=== PATIENT | male | born 1945 | race Caucasian/White ===

== ENCOUNTER 2017-05-08 22:17 | Emergency (ER) | payer MEDICARE ==
[~2017-05-08] VITALS: Ht 180.3 cm; Wt 83.9 kg
--- NOTE | 2017-05-10 21:43 | EKG ---
[facility] [address] [facility] [place] [address] Signed Sinus bradycardia Right bundle branch block Abnormal ECG No previous ECGs available Confirmed by ANTONI GREGORIO MD ([id number] on 05/10/2017 9:43:23 PM Electronically Signed By: ANTONI GREGORIO MD 05/10/17 2143 PATIENT NAME: TAMEKANILSON Dominique Electrocardiogram DATE OF : 45 PHYSICIAN: ANTONI GREGORIO MD REPORT #: [id number] REPORT IS CONFIDENTIAL AND NOT TO BE RELEASED WITHOUT AUTHORIZATION
== END 2017-05-08 23:58 | disposition home or self-care (01) ==
LOC: ED 22:17
DX: J44.1 Chronic obstructive pulmonary disease with (acute) exacerbation (principal); F17.200 Nicotine dependence, unspecified, uncomplicated
CPT/HCPCS: 71046; 80053; 83880; 84484; 85025; 93005; 93010; 94640; 96374; 99284; J2930